=== PATIENT | male | born 1980 | race Two or more races ===

== ENCOUNTER 2020-02-21 17:41 | Emergency (ER) | payer SELFPAY ==
[~2020-02-21] VITALS: Ht 170.2 cm; Wt 82.2 kg
[2020-02-21] MEDS ORDERED: IV NORMAL SALINE 1000ML BAG 1,000 ML IV SCH (18:05)
[2020-02-21] MEDS ORDERED: TAMSULOSIN 0.4 MG CAP.ER.24H. PO STA (18:05)
[2020-02-21 18:14] LABS: BASO % 0 % (0-3); EOS # 0.1 x10^3/uL (0.0-0.7); EOS % 1 % (0-3); HEMATOCRIT 47.1 % (39.0-53.0); HEMOGLOBIN 16.3 g/dL (13.0-17.5); LYMPH # 0.8 x10^3/uL (1.0-4.8); LYMPH % 7 % (24-48); MEAN CORPUSCULAR HEMOGLOBIN 36 pg (25-35); MEAN CORPUSCULAR HGB CONC 35 g/dL (31-37); MEAN CORPUSCULAR VOLUME 104 fL (79-100); MONO % 8 % (0-9); NEUT # 10.3 x10^3/uL (1.8-7.7); NEUT % 85 % (31-73); PLATELET COUNT 45 x10^3/uL (140-400); RED BLOOD COUNT 4.53 x10^6/uL (4.30-5.70); RED CELL DISTRIBUTION WIDTH 12.5 % (11.5-14.5); WHITE BLOOD COUNT 12.1 x10^3/uL (4.0-11.0)
[2020-02-21] MEDS ORDERED: KETOROLAC 30 MG/ML VIAL. IVP ONE (18:15)
[2020-02-21] MEDS ORDERED: ONDANSETRON PF 4 MG/2 ML VIAL. IVP ONE (18:15)
--- NOTE | 2020-02-21 18:18 | PHYS DOC ---
Past Medical History Past Medical History: Other Additional Past Medical Histor: CIRRHOSIS Past Surgical History: No Surgical History Smoking Status: Current Every Day Smoker Additional Information: < 1 PPD Alcohol Use: Heavy Additional Information: 12 [employer] Social History Narrative: LAST USED [facility] ON FEBRUARY 20, 2020 General Adult EDM: Chief Complaint: BLOOD IN URINE HPI: HPI: Patient is a 39 year old male who presents with complaint of right flank pain for the last several days. He states that pain had gone away but then came back 2 days ago. Patient states that this morning when he woke up, he saw blood in his urine. He denies any history of kidney stones. He indicates the pain radiates around into his back as well as down into his groin and right testicle. He states that he has had some nausea as well as vomiting. He rates pain at a 9 out of 10. He states that nothing improves the pain. [] Review of Systems: Review of Systems: Constitutional: Denies fever or chills. [] Respiratory: Denies cough or shortness of breath. [] Cardiovascular: Denies chest pain or edema. [] GI: Complains of right flank pain with nausea and vomiting. Denies diarrhea. [] : Denies dysuria. Complains of hematuria. [] Neurologic: Denies headache, focal weakness or sensory changes. [] A full 10 point review of systems has been reviewed and is otherwise negative. Heart Score: Risk Factors: Risk Factors: DM, Current or recent (<one month) smoker, HTN, HLP, family history of CAD, obesity. Risk Scores: Score 0 - 3: 2.5% MACE over next 6 weeks - Discharge Home Score 4 - 6: 20.3% MACE over next 6 weeks - Admit for Clinical Observation Score 7 - 10: 72.7% MACE over next 6 weeks - Early Invasive Strategies Allergies: Allergies: Allergies Coded Allergies Type Severity Reaction Last Updated Verified No Known Drug Allergies 02/21/20 No Physical Exam: PE: Constitutional: Well developed, well nourished, no acute distress, non-toxic appearance. [] HENT: Normocephalic, atraumatic, bilateral external ears normal, oropharynx moist, no oral exudates, nose normal. [] Eyes: PERRLA, EOMI, conjunctiva normal, no discharge. [] Neck: Normal range of motion, no tenderness, supple, no stridor. [] Cardiovascular: Regular rate and rhythm [] Lungs & Thorax: Bilateral breath sounds clear to auscultation [] Abdomen: Bowel sounds normal, soft, no tenderness. [] Skin: Warm, dry, no erythema, no rash. [] Extremities: No tenderness, no cyanosis, no clubbing, ROM intact, no edema. [] Neurologic: Alert and oriented X 3, no focal deficits noted. [] Current Patient Data: Vital Signs: Vital Signs Date Time Temp Pulse Resp B/P (MAP) Pulse Ox O2 Delivery O2 Flow Rate FiO2 02/21/20 17:42 99.1 96 20 189/122 (144) 98 Room Air 99.1 EKG: EKG: [] Radiology/Procedures: Radiology/Procedures: [] Impression: PROCEDURE: CT ABDOMEN PELVIS WO CONTRAST CT scan of the abdomen and pelvis without contrast 02/21/2020 CLINICAL HISTORY: Right flank pain. Hematuria. TECHNIQUE: Unenhanced, contiguous, 2 mm axial sections were obtained through the abdomen and pelvis. One or more of the following individualized dose reduction techniques were utilized for this study: 1. Automated exposure control. 2. Adjustment of the mA and/or kV according to patient size. 3. Use of iterative reconstruction technique. FINDINGS: No previous imaging studies are available for comparison. Images through the lung bases demonstrate minimal dependent subsegmental atelectasis bilaterally. The liver parenchyma has a decreased attenuation consistent with fatty infiltration. The spleen pancreas and adrenal glands are within normal limits. The inferior poles of both kidneys are fused across the midline consistent with a horseshoe kidney. Moderate to severe dilatation of the right intrarenal collecting system and right renal pelvis is seen. Increased density is seen within the fat surrounding the right renal pelvis. The visualized right ureter is normal in caliber. These findings are felt to most likely reflect an acute UPJ obstruction. The cause of the obstruction is not clear on this study. No radiopaque calculus is definitely seen. Scattered atherosclerotic calcification of the abdominal aorta is noted. The abdominal aorta tapers normally. The gallbladder is contracted. No free fluid or free air is seen within the abdomen. There is no evidence of bowel obstruction. Images through the pelvis demonstrate the urinary bladder distended with urine. No free fluid is seen. Moderate amount stool is seen involving the sigmoid colon. Very mild S-shaped curvature of the thoracolumbar spine is seen. Degenerative changes are seen involving mid and lower lumbar spine. IMPRESSION: Findings are seen consistent with a right UPJ obstruction of uncertain etiology as discussed above. Electronically signed by: Obed Hernandez MD (02/21/2020 7:18 PM) [id number] Course & Med Decision Making: Course & Med Decision Making Pertinent Labs and Imaging studies reviewed. (See chart for details) [] Dragon Disclaimer: Dragon Disclaimer: This electronic medical record was generated, in whole or in part, using a voice recognition dictation system. Departure Departure Impression: Primary Impression: Ureterolithiasis Additional Impression: Hypertension Qualified Codes: I10 - Essential (primary) hypertension Disposition: HOME, SELF-CARE Condition: STABLE Referrals: MELONY BLANCHARD MD (PCP) Patient Instructions: Hypertension, Kidney Stones Scripts Tamsulosin Hcl (FLOMAX) 0.4 Mg Cap.er.24h 0.4 MG PO DAILY, #10 TAB Prov: LUIS GUZMAN Jr. DO 02/21/20 Ketorolac Tromethamine (KETOROLAC TROMETHAMINE) 10 Mg Tablet 1 TAB PO PRN Q6HRS PRN for PAIN, #20 TAB Prov: LUIS GUZMAN Jr. DO 02/21/20 Ondansetron (ONDANSETRON ODT) 4 Mg Tab.rapdis 1 TAB PO PRN Q6-8HRS PRN for NAUSEA, #15 TAB Prov: LUIS GUZMAN Jr. DO 02/21/20 Oxycodone/Apap 7.5-325 (PERCOCET 7.5-325 MG TABLET ) 1 Each Tablet 1 TAB PO QIDPRN PRN for PAIN MDD 4 Tablet(s), #15 TAB 0 Refills Prov: LUIS GUZMAN Jr. DO 02/21/20 LUIS GUZMAN Jr. DO February 21, 2020 18:18
[2020-02-21] MEDS: HYDROmorphone 2 MG/ML VIAL IV/SQ PRN ×2 (18:19→20:03)
[2020-02-21 18:21] LABS: CALCIUM 9.6 mg/dL (8.5-10.1); CREATININE 1.3 mg/dL (0.7-1.3); GFR 60.8; POTASSIUM 3.7 mmol/L (3.5-5.1)
[2020-02-21 18:27] LABS: ALBUMIN 3.9 g/dL (3.4-5.0); ALBUMIN/GLOBULIN RATIO 0.9 (1.0-1.7); TOTAL BILIRUBIN 2.1 mg/dL (0.2-1.0); TOTAL PROTEIN 8.4 g/dL (6.4-8.2)
[2020-02-21 18:31] LABS: PLT ESTIMATE DECREASED (ADEQUATE)
[2020-02-21 18:57] LABS: BILIRUBIN,URINE NEGATIVE (NEG); CLARITY,URINE CLEAR; COLOR,URINE YELLOW; NITRITE,URINE NEGATIVE (NEG); PH,URINE 6.5 (<5.0-8.0); PROTEIN,URINE NEGATIVE (NEG-TRACE)
[2020-02-21 19:07] LABS: BACTERIA,URINE 0 /HPF (0-FEW); RBC,URINE 0 /HPF (0-2); WBC,URINE 0 /HPF (0-4)
[2020-02-21] MEDS ORDERED: cloNIDine HCL 0.1 MG TABLET PO ONE (19:15)
--- NOTE | 2020-02-21 19:21 | RAD ---
CT scan of the abdomen and pelvis without contrast 02/21/2020 CLINICAL HISTORY: Right flank pain. Hematuria. TECHNIQUE: Unenhanced, contiguous, 2 mm axial sections were obtained through the abdomen and pelvis. One or more of the following individualized dose reduction techniques were utilized for this study: 1. Automated exposure control. 2. Adjustment of the mA and/or kV according to patient size. 3. Use of iterative reconstruction technique. FINDINGS: No previous imaging studies are available for comparison. Images through the lung bases demonstrate minimal dependent subsegmental atelectasis bilaterally. The liver parenchyma has a decreased attenuation consistent with fatty infiltration. The spleen pancreas and adrenal glands are within normal limits. The inferior poles of both kidneys are fused across the midline consistent with a horseshoe kidney. Moderate to severe dilatation of the right intrarenal collecting system and right renal pelvis is seen. Increased density is seen within the fat surrounding the right renal pelvis. The visualized right ureter is normal in caliber. These findings are felt to most likely reflect an acute UPJ obstruction. The cause of the obstruction is not clear on this study. No radiopaque calculus is definitely seen. Scattered atherosclerotic calcification of the abdominal aorta is noted. The abdominal aorta tapers normally. The gallbladder is contracted. No free fluid or free air is seen within the abdomen. There is no evidence of bowel obstruction. Images through the pelvis demonstrate the urinary bladder distended with urine. No free fluid is seen. Moderate amount stool is seen involving the sigmoid colon. Very mild S-shaped curvature of the thoracolumbar spine is seen. Degenerative changes are seen involving mid and lower lumbar spine. IMPRESSION: Findings are seen consistent with a right UPJ obstruction of uncertain etiology as discussed above. Electronically signed by: Obed Hernandez MD (02/21/2020 7:18 PM) [id number]
[2020-02-21] MEDS ORDERED: TAMS0.4C97 PO (19:34)
[2020-02-21] MEDS ORDERED: ONDA4TAB12 PO (19:34)
[2020-02-21] MEDS ORDERED: OXYC1TAB19 PO (19:34)
[2020-02-21] MEDS ORDERED: KETO10TA PO (19:34)
[2020-02-21 20:33] VITALS: BP 134/78
== END 2020-02-21 20:33 | disposition home or self-care (01) ==
LOC: ER 17:41
DX: N20.1 Calculus of ureter (principal); I10 Essential (primary) hypertension; R11.2 Nausea with vomiting, unspecified; F17.200 Nicotine dependence, unspecified, uncomplicated; F10.20 Alcohol dependence, uncomplicated; Y90.9 Presence of alcohol in blood, level not specified
CPT/HCPCS: 36415; 74176; 80053; 81001; 83690; 85025; 96361; 96374; 96375; 96376; 99284; J1170; J1885; J2405; J7030